=== PATIENT | male | born 1975 | race Caucasian/White ===

== ENCOUNTER 2018-04-02 08:00 | Emergency (ER) | payer BC, OTHER ==
[~2018-04-02] VITALS: Ht 180.3 cm; Wt 112.4 kg
[2018-04-02 08:16] VITALS: TEMP 36.9; Ht 180.3 cm; Wt 112.4 kg
[2018-04-02] MEDS ORDERED: SODIUM CHLORIDE 0.9% 1000ML 1,000 ML IV STA (08:25)
--- NOTE | 2018-04-02 08:55 | DIAGNOSTIC IMAGING REPORT ---
CHEST ONE VIEW PORTABLE CLINICAL HISTORY: EVALUATE GI BLEED dyspnea COMPARISON STUDY: No previous studies for comparison. FINDINGS: The bones soft tissues and hemidiaphragms are normal. The cardiomediastinal silhouette is normal. The lungs are clear. The pulmonary vasculature is normal. IMPRESSION: Negative chest. The above report was generated using voice recognition software. It may contain grammatical, syntax or spelling errors. Electronically signed by: Angus Scott M.D. 04/02/2018 8:53 AM Dictated Date/Time: 04/02/2018 8:53 AM
[2018-04-02 09:01] LABS: EOS % 0.2 %; EOS ABS # 0.01 K/uL (0-0.5); HEMATOCRIT 42.2 % (42-52); HEMOGLOBIN 14.3 g/dL (14.0-18.0); IG# 0.01 K/uL (0.00-0.02); LYMPH % 11.5 %; LYMPH ABS # 0.67 K/uL (1.2-3.4); MEAN CELL VOLUME 88.5 fL (80-100); MEAN CORPUSCULAR HGB CONC 33.9 g/dl (32-36); MONO % 8.4 %; MONO ABS # 0.49 K/uL (0.11-0.59); NEUT % 79.7 %; NEUT ABS # 4.64 K/uL (1.4-6.5); PLATELET COUNT 323 K/uL (130-400); RED CELL DISTRIBUTION WIDTH CV 13.2 % (11.5-14.5); RED CELL DISTRIBUTION WIDTH SD 42.5 fL (36.4-46.3); WHITE BLOOD COUNT 5.82 K/uL (4.8-10.8)
[2018-04-02 09:13] LABS: PTT PATIENT 25.1 SECONDS (21.0-31.0)
[2018-04-02 09:22] LABS: ALBUMIN 3.9 gm/dl (3.4-5.0); ALKALINE PHOSPHATASE 61 U/L (45-117); ALT/SGPT 25 U/L (12-78); AST/SGOT 17 U/L (15-37); BLOOD UREA NITROGEN 11 mg/dl (7-18); CARBON DIOXIDE 24 mmol/L (21-32); CKMB < 1.0 ng/ml (0.5-3.6); CREATININE 0.77 mg/dl (0.60-1.40); GLUCOSE 98 mg/dl (70-99); LIPASE 124 U/L (73-393); POTASSIUM 3.9 mmol/L (3.5-5.1); SODIUM 138 mmol/L (136-145)
[2018-04-02] MEDS ORDERED: OMEP20CA9 PO (11:27)
[2018-04-02] MEDS ORDERED: MECL1TAB42 PO (11:27)
--- NOTE | 2018-04-02 11:28 | EMERGENCY ROOM VISIT NOTE ---
History Report prepared by Rupal: Bronson Morgan Under the Supervision of: Dr. Cosme Perez D.O. First contact with patient: 08:15 Chief Complaint: NAUSEA Stated Complaint: NAUSEA, LIGHTHEADED History of Present Illness The patient is a 43 year old male who presents to the Emergency Room with complaints of lightheadedness that has been acutely worsening over the past "couple of days." The patient states that "I feel like shit." "I feel like I am going to pass out, but I never do." The patient also notes that he feels weak and shaky when the lightheadedness onsets. He continues to complain that he has been having abdominal pain, neck, and back pain for the past 6 months. He has a history of polyps in the stomach and they have bled before. He has had black/ tarry stools in the past, but has not noticed any blood in the stools. The last episode of melena was last week, but he has had these symptoms for the past 6 months. He does complain of a lot of stress recently due to his job and bills he has to pay. The patient denies any nausea, vomiting, fevers, or diarrhea. Source of History: patient Onset: "couple of days" Position: head Quality: other ("lightheadness" ) Timing: worsening Associated Symptoms: + neck pain, + abdominal pain, + back pain, + melena, + weakness, No fevers, No nausea, No vomiting, No diarrhea Note: Patient notes lightheadedness as "near syncopal." Review of Systems See HPI for pertinent positives & negatives. A total of 10 systems reviewed and were otherwise negative. Past Medical & Surgical Hx of stomach polyps. Social History Marital Status: Housing Status: lives with significant other Occupation Status: employed Current/Historical Medications No Active Prescriptions or Reported Meds Allergies Coded Allergies: No Known Allergies (Unverified , 04/02/18) Physical Exam Vital Signs Date Time Temp Pulse Resp B/P (MAP) Pulse Ox O2 Delivery O2 Flow Rate FiO2 04/02/18 10:16 49 20 121/87 96 04/02/18 09:08 53 123/84 59 115/83 75 131/84 04/02/18 09:05 57 20 134/85 100 04/02/18 08:21 53 04/02/18 08:16 36.9 50 20 129/85 95 Room Air Physical Exam CONSTITUTIONAL/VITAL SIGNS: Reviewed / noted above. GENERAL: Non-toxic in appearance. INTEGUMENTARY: Warm, dry, and [place]. HEAD: Normocephalic. EYES: without scleral icterus or trauma. ENT/OROPHARYNX: clear and moist. LYMPHADENOPATHY/NECK: Is supple without lymphadenopathy or meningismus. RESPIRATORY: Lungs clear and equal. CARDIOVASCULAR: Regular rate and rhythm. GI/ABDOMEN: Soft and nontender. No organomegaly or pulsatile mass. No rebound or guarding. Normal bowel sounds. EXTREMITIES: Warm and well perfused. BACK: No CVA tenderness. NEUROLOGICAL: Intact without focal deficits. PSYCHIATRIC: normal affect. MUSCULOSKELETAL: Normally developed with good muscle tone. RECTAL: Light brown stools, guaiac negative. Medical Decision & Procedures ER Provider Diagnostic Interpretation: Radiology results as stated below per my review and radiologist interpretation: CHEST ONE VIEW PORTABLE CLINICAL HISTORY: EVALUATE GI BLEED dyspnea COMPARISON STUDY: No previous studies for comparison. FINDINGS: The bones soft tissues and hemidiaphragms are normal. The cardiomediastinal silhouette is normal. The lungs are clear. The pulmonary vasculature is normal. IMPRESSION: Negative chest. The above report was generated using voice recognition software. It may contain grammatical, syntax or spelling errors. Electronically signed by: Angus Scott M.D. 04/02/2018 8:53 AM Dictated Date/Time: 04/02/2018 8:53 AM Laboratory Results 04/02/18 08:45 Red Blood Count 4.77, Mean Corpuscular Volume 88.5, Mean Corpuscular Hemoglobin 30.0, Mean Corpuscular Hemoglobin Concent 33.9, Mean Platelet Volume 10.0, Neutrophils (%) (Auto) 79.7, Lymphocytes (%) (Auto) 11.5, Monocytes (%) (Auto) 8.4, Eosinophils (%) (Auto) 0.2, Basophils (%) (Auto) 0.0, Neutrophils # (Auto) 4.64, Lymphocytes # (Auto) 0.67, Monocytes # (Auto) 0.49, Eosinophils # (Auto) 0.01, Basophils # (Auto) 0.00 04/02/18 08:45 Test 04/02/18 08:45 White Blood Count 5.82 K/uL (4.8-10.8) Red Blood Count 4.77 M/uL (4.7-6.1) Hemoglobin 14.3 g/dL (14.0-18.0) Hematocrit 42.2 % (42-52) Mean Corpuscular Volume 88.5 fL (80-100) Mean Corpuscular Hemoglobin 30.0 pg (25-34) Mean Corpuscular Hemoglobin Concent 33.9 g/dl (32-36) Platelet Count 323 K/uL (130-400) Mean Platelet Volume 10.0 fL (7.4-10.4) Neutrophils (%) (Auto) 79.7 % Lymphocytes (%) (Auto) 11.5 % Monocytes (%) (Auto) 8.4 % Eosinophils (%) (Auto) 0.2 % Basophils (%) (Auto) 0.0 % Neutrophils # (Auto) 4.64 K/uL (1.4-6.5) Lymphocytes # (Auto) 0.67 K/uL (1.2-3.4) Monocytes # (Auto) 0.49 K/uL (0.11-0.59) Eosinophils # (Auto) 0.01 K/uL (0-0.5) Basophils # (Auto) 0.00 K/uL (0-0.2) RDW Standard Deviation 42.5 fL (36.4-46.3) RDW Coefficient of Variation 13.2 % (11.5-14.5) Immature Granulocyte % (Auto) 0.2 % Immature Granulocyte # (Auto) 0.01 K/uL (0.00-0.02) Prothrombin Time 10.7 SECONDS (9.0-12.0) Prothromb Time International Ratio 1.0 (0.9-1.1) Activated Partial Thromboplast Time 25.1 SECONDS (21.0-31.0) Partial Thromboplastin Ratio 1.0 Anion Gap 8.0 mmol/L (3-11) Est Creatinine Clear Calc Drug Dose 157.7 ml/min Estimated GFR () 128.8 Estimated GFR (Non- 111.1 BUN/Creatinine Ratio 14.0 (10-20) Calcium Level 9.0 mg/dl (8.5-10.1) Total Bilirubin 0.4 mg/dl (0.2-1) Direct Bilirubin 0.1 mg/dl (0-0.2) Aspartate Amino Transf (AST/SGOT) 17 U/L (15-37) Alanine Aminotransferase (ALT/SGPT) 25 U/L (12-78) Alkaline Phosphatase 61 U/L (45-117) Total Creatine Kinase 117 U/L (39-308) Creatine Kinase MB < 1.0 ng/ml (0.5-3.6) Creatine Kinase MB Ratio (0-3.0) Troponin I < 0.015 ng/ml (0-0.045) Total Protein 8.0 gm/dl (6.4-8.2) Albumin 3.9 gm/dl (3.4-5.0) Lipase 124 U/L (73-393) Laboratory results as stated above per my review. Medications Administered Medications (Trade) Dose Ordered Sig/Anette Route Start Time Stop Time Status Last Admin Dose Admin Sodium Chloride 1,000 ml @ 999 mls/hr Q1H1M STAT IV 04/02/18 08:25 04/02/18 09:25 DC 04/02/18 09:06 999 MLS/HR ECG Per My Interpretation Indication: weakness, other (Dizzy) Rate (beats per minute): 50 Rhythm: sinus bradycardia Findings: T-wave inversion (Anterior), no ectopy ED Course 0817: Previous medical records were reviewed. The patient was evaluated in room B7. A complete history and physical examination was performed. 0825: Ordered Sodium Chloride 1000 mL @ 999 mL/hr IV. 1056: On reevaluation, the patient is resting in bed. I discussed the results and findings with the patient. He verbalized agreement of the treatment plan. The patient was discharged home. Medical Decision Differential includes acute coronary syndrome, myocardial infarction, CVA, TIA, anemia, infection, pneumonia, UTI, pyelonephritis, poor nutrition, dehydration, electrolyte disturbance,hypoglycemia. This is a 43-year-old male who presents to the ED with a chief complaint of weakness, dizziness, nausea and some shakiness. The patient also reports stomach problems. He reports stomach problems for the past 6 months. He reports intermittent black stools. Last episode of black stools was last week. He also feels like there might be a lump in his left upper quadrant. The patient has no other specific symptoms at this time. His vital signs are normal. Physical exam was unremarkable. No clear palpable mass was palpated in left upper quadrant. The patient is no acute distress. CBC and complete metabolic panel were normal. Troponin was negative. Lipase is negative. LFTs were normal. Chest x-ray is negative for acute disease. EKG does show sinus bradycardia at a rate of 50 with T-wave inversions. No old EKG was available. His symptoms do not appear to be cardiac in nature. The patient was told the results. He does have history of gastric ulcer in the past. He has seen a GI specialist in the past for gastric ulcers and bleeding. He was advised follow- up with them. He was given Prilosec prescription. He also requested something for dizziness. He was given a prescription for meclizine. The patient was advised to not swallow his snuff/saliva. Medication Reconcilliation Current Medication List: was personally reviewed by me Blood Pressure Screening Patient's blood pressure: Normal blood pressure Impression Primary Impression: Dizziness Additional Impressions: Nausea Black stool Scribe Attestation The scribe's documentation has been prepared under my direction and personally reviewed by me in its entirety. I confirm that the note above accurately reflects all work, treatment, procedures, and medical decision making performed by me. Departure Information Dispostion Home / Self-Care Prescriptions Meclizine Hcl (MECLIZINE HCL) 25 Mg Tab 1 TAB PO TID Y for Dizziness or Vertigo for 10 Days, #30 TAB Prov: Cosme Perez D.O. 04/02/18 Omeprazole (PRILOSEC) 20 Mg Cap 20 MG PO BID, #30 CAP Prov: Cosme Perez D.O. 04/02/18 Patient Instructions My [facility] Additional Instructions Follow-up with your doctor for further care and evaluation in 1-2 days. Return to the emergency department for worsening or new symptoms or any concerns. You have been examined and treated today on an emergency basis only. This is not a substitute for, or an effort to provide, complete comprehensive medical care. It is impossible to recognize and treat all injuries or illnesses in a single emergency department visit. It is therefore important that you follow up closely with your doctor. Call as soon as possible for an appointment. Take Prilosec as prescribed. For GI. Take meclizine as prescribed. This is for dizziness. Talk to your GI specialist and make arrangements for follow-up with them. Problem Qualifiers
[2018-04-02 11:36] VITALS: BP 115/80; PULSE 50; O2SAT 97
== END 2018-04-02 11:51 | disposition home or self-care (01) ==
LOC: EDBD 08:00 → C.EDB 08:03
DX: R42 Dizziness and giddiness (principal); R11.0 Nausea; K92.1 Melena; F17.200 Nicotine dependence, unspecified, uncomplicated